=== PATIENT | female | born 1995 | race Caucasian/White ===

== ENCOUNTER 2019-12-13 10:20 | Emergency (ER) | payer BC, SELFPAY ==
[2019-12-13 10:29] VITALS: BP 119/85; PULSE 73; RESP 16; TEMP 36.8; O2SAT 100
--- NOTE | 2019-12-13 10:33 | ED.WOUNDLAC ---
HPI - Wound/Laceration General Chief Complaint: Wound/Laceration Stated Complaint: Cut to Right Thumb Time Seen by Provider: 12/13/19 10:33 Source: patient and RN notes reviewed History of Present Illness HPI narrative: Patient is a 24-year-old female who presents the urgent care with complaints of a laceration to the right thumb. Patient states that she came directly to the urgent care after the cut while washing dishes. Patient is right-hand dominant. Patient states it was on a clean piece of glass. Patient is up-to-date on her tetanus. No other acute complaints or injuries. No acute distress noted. Patient read the plan of care. Related Data Allergies Allergy/AdvReac Type Severity Reaction Status Date / Time No Known Drug Allergies Allergy Unknown Other Verified 12/13/19 10:24 Review of Systems Review of Systems: Narrative: CONSTITUTIONAL: Denies fever, chills, or sweats. EYES: Denies visual changes, redness, or discharge. ENT: Denies rhinorrhea, congestion, sore throat, or otalgia. CARDIOVASCULAR: Denies chest pain, palpitations, or edema. RESPIRATORY: Denies cough or dyspnea. GASTROINTESTINAL: Denies abdominal pain, nausea, vomiting, or diarrhea. GENITOURINARY: Denies dysuria or hematuria. SKIN: Reports of a laceration to the right thumb MUSCULOSKELETAL: Denies back pain, joint pain, or myalgia. NEUROLOGIC: Denies headache, numbness, or weakness. All other systems reviewed are negative, except as documented in HPI. PMFSH Comments At the time of my signature, I reviewed and agree with the nursing past medical, surgical, social, and family history. There is no relevant family history pertinent to the patient complaint. Exam Narrative: Exam Narrative: GENERAL: This is a well-nourished, well-developed patient, in no apparent distress. HEAD: normocephalic, atraumatic. EYES: PERRL. Sclera clear/white. Vision is grossly intact. EARS: External ears normal NOSE: External nose normal with no obvious nasal discharge THROAT: Mucous membranes moist NECK: Neck supple SKIN: 2 cm inch linear laceration to the dorsal base of the right thumb NEURO: awake, alert, and oriented to person, place and time. There were no obvious focal neurologic abnormalities. EXTREMITIES: No clubbing, cyanosis, or edema. Course Vital Signs Vital signs: Vital Signs Temperature 98.2 F 12/13/19 10:29 Pulse Rate 73 12/13/19 10:29 Respiratory Rate 16 12/13/19 10:29 Blood Pressure 119/85 12/13/19 10:29 Pulse Oximetry 100 12/13/19 10:29 Temperature 98.2 F 12/13/19 10:29 Pulse Rate 73 12/13/19 10:29 Respiratory Rate 16 12/13/19 10:29 Blood Pressure 119/85 12/13/19 10:29 Pulse Oximetry 100 12/13/19 10:29 Reviewed Procedures Laceration Laceration 1: Site: hand (Right thumb) Side (If applicable): right Description: linear Local Anesthetic: lidocaine 1% Amount of anesthesia used (mL): 0.75 Pre-repair: irrigated ====== Skin Level ====== Size (cm): other (7-0) Number of sutures: 3 ====== Subcutaneous Layer ====== ====== Muscle Layer ====== ====== Tendon Layer ====== Dressin cm linear laceration to the dorsal base of the right thumb. Wound irrigated and cleansed with [employer] normal saline. 1% lidocaine, 0.75 mils, for anesthetic. 7-0 Ethilon, 3 sutures placed, 4 Steri-Strips placed. Patient tolerated well. Positive strong right radial pulse with capillary refill less than 2 seconds pre-and post procedure. Range of motion within normal limits to right affected thumb. MDM - Wound/Laceration MDM Narrative Medical decision making narrative: Advised the patient to clean the area with plain Dial soap and water without scrubbing directly over the sutures. Do not remove the Steri-Strips. Allow them to fall off on their own. May reinforce new ones if necessary. Sutures need to be removed within 7 to 10 days. 3 sutures were placed, and
== END 2019-12-13 11:13 | disposition home or self-care (01) ==
PROVIDERS: Emergency Provider Nurse Practitioner Family; PCP Family Medicine
DX: S61.011A Laceration without foreign body of right thumb without damage to nail, initial encounter (principal); W45.8XXA Other foreign body or object entering through skin, initial encounter; Y93.G1 Activity, food preparation and clean up
CPT/HCPCS: 12001; 99213; G0463

== ENCOUNTER 2021-09-27 10:58 | Emergency (ER) | payer OTHER, BC, SELFPAY ==
[2021-09-27 11:10] VITALS: BP 139/86; PULSE 65; RESP 16; TEMP 36.2; O2SAT 100
[2021-09-27 11:12] VITALS: BP 139/86; PULSE 65; RESP 16; TEMP 36.2; O2SAT 100
--- NOTE | 2021-09-27 11:28 | ED.GENADULT ---
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 Related Data Home Medications Medication Instructions Recorded Confirmed norelgestromin-ethin.estradiol 1 patch TOPICAL WEEKLY 09/27/21 09/27/21 [Xulanjac] Allergies Allergy/AdvReac Type Severity Reaction Status Date / Time No Known Drug Allergies Allergy Unknown Other Verified 09/27/21 11:11 Review of Systems Review of Systems: CONSTITUTIONAL: Denies fever, chills, or sweats. EYES: Denies visual changes, redness, or discharge. ENT: Denies rhinorrhea, congestion, sore throat, or otalgia. CARDIOVASCULAR: Denies chest pain, palpitations, or edema. RESPIRATORY: Denies cough or dyspnea. GASTROINTESTINAL: Denies abdominal pain, nausea, vomiting, or diarrhea. GENITOURINARY: Denies dysuria or hematuria. SKIN: Denies rash or itching. Positive for needlestick on Monday to left thumb tip MUSCULOSKELETAL: Denies back pain, joint pain, or myalgia. NEUROLOGIC: Denies headache, numbness, or weakness. PSYCHIATRIC: Denies anxiety or depression. All systems reviewed & are unremarkable except as noted in HPI and below PMFSH Past Medical History Medical History (Updated 09/27/21 @ 19:31 by Katy Mauricio NP) Anemia Asthma as child History of sinus problem Surgical History Surgical History (Updated 09/27/21 @ 19:29 by Katy Mauricio NP) History of tonsillectomy Social History Social History (Updated 09/27/21 @ 19:30 by Katy Mauricio NP) Smoking status: Former smoker Tobacco type: cigarettes Alcohol intake: current Alcohol use details: social Substance use: never Living arrangements: with family Gender identity (if verbalized by the patient): Female Comments At time of signature, agree with nursing past medical, surgical, social and family history. There is no relevant family history pertinent to the presenting complaint Exam Narrative: GENERAL: Well-appearing, well-nourished, and in no acute distress. HEAD: Normocephalic, atraumatic. EYES: PERRLA and EOMI. ENT: Nares clear, no rhinorrhea or epistaxis. Mucous membranes moist. TMs normal with good light reflex throat pink with no lesions or exudates no tonsils present NECK: Supple. No lymphadenopathy CHEST: Clear to auscultation. No respiratory distress. SaO2 100% on room air HEART: Regular rate and rhythm. No murmur heard. Normal peripheral pulses. ABDOMEN: Soft, nontender, nondistended, normal active bowel sounds. EXTREMITIES: Normal range of motion. No edema. SKIN: Warm, dry, no rash. NEURO: No focal deficits. Alert and oriented x3. Course Course Level of Care: Express Care Visit Vital Signs Vital signs: Vital Signs Temperature 36.2 C L 09/27/21 11:10 Pulse Rate 65 09/27/21 11:10 Respiratory Rate 16 09/27/21 11:10 Blood Pressure 139/86 09/27/21 11:10 Pulse Oximetry 100 09/27/21 11:10 Temperature 36.2 C L 09/27/21 11:12 Pulse Rate 65 09/27/21 11:12 Respiratory Rate 16 09/27/21 11:12 Blood Pressure 139/86 09/27/21 11:12 Pulse Oximetry 100 09/27/21 11:12 Medical Decision Making Differential Diagnosis Differential Diagnosis: Influenza, prophylactics for Leptospirosis, needle stick treatment Vital Signs Vital Signs: Vital Si
== END 2021-09-27 11:44 | disposition home or self-care (01) ==
PROVIDERS: Emergency Provider Registered Nurse; PCP Family Medicine
DX: S61.032A Puncture wound without foreign body of left thumb without damage to nail, initial encounter (principal); W46.0XXA Contact with hypodermic needle, initial encounter; Y99.0 Civilian activity done for income or pay; A27.9 Leptospirosis, unspecified; Z87.891 Personal history of nicotine dependence
CPT/HCPCS: 99213; G0463

== ENCOUNTER → 2023-01-14 07:58 | Outpatient (CLI) | payer BC, SELFPAY ==
--- NOTE | ~2023-01-14 | US_ITS ---
EXAMINATION: US pelvic complete DATE: 01/14/2023 08:14 INDICATION: Amenorrhea, unspecified. TECHNIQUE: Multiple transabdominal sonographic images of the pelvis were obtained. COMPARISON: Pelvis ultrasound 08/05/2010 FINDINGS: The uterus measures 8.1 x 3.1 x 5.1 cm. There is no free fluid in the pelvis. The endometrial complex measures 3 mm in thickness. The right ovary measures 2.4 x 1.4 x 2.6 cm. The left ovary measures 3.2 x 2.0 x 3.1 cm. There is normal vascular flow in the ovaries. IMPRESSION: 1. Normal pelvis. Reviewed, dictated and finalized at location E. IMPRESSION: 1. Normal pelvis.
== END ==
PROVIDERS: PCP Nurse Practitioner; Visit Provider Nurse Practitioner
DX: N91.2 Amenorrhea, unspecified (principal)
CPT/HCPCS: 76856

== ENCOUNTER 2024-03-07 12:21 | Emergency (ER) | payer BC, SELFPAY ==
--- NOTE | 2024-03-07 12:26 | ED.URI ---
HPI - URI/Sore Throat General Chief Complaint: Upper Respiratory Infection Stated Complaint: runny Nose / sinus infection Time Seen by Provider: 03/07/24 12:25 Source: patient Mode of arrival: ambulatory Limitations: no limitations History of Present Illness HPI Narrative: Patient is a 28-year-old female who presents with congestion, runny nose, ear pressure and intermittent sinus pressure since Monday. Patient has been taking DayQuil and NyQuil with no relief. Patient has history of sinusitis. Denies any fever, chills, nausea, vomiting, diarrhea. Does not take daily allergy medicine Related Data Home Medications Medication Instructions Recorded Confirmed lactic acid 1.8 %-citric ac 1 vaginal 03/07/24 %-potassium bitartate 0.4 % vaginal gel (Phexxi) sertraline 100 mg tablet mg 03/07/24 trazodone 50 mg tablet mg 03/07/24 03/07/24 Allergies Allergy/AdvReac Type Severity Reaction Status Date / Time No Known Drug Allergies Allergy Unknown Other Verified 03/07/24 12:38 Review of Systems Review of Systems: All systems reviewed & are unremarkable except as noted in HPI and below Constitutional: Constitutional: Denies body ache(s), Denies chills, Denies fatigue, Denies fever(s), Denies headache(s), Denies malaise and Denies weakness Eyes: Eyes: Denies blurry vision, Denies itchy eyes and Denies loss of vision ENT: Reports otalgia, Denies headache(s), Reports nasal congestion, Reports nasal discharge, Denies sinus pain, Reports sinus pressure and Denies sore throat Cardiovascular: Cardiovascular: Denies chest pain, Denies irregular heart rhythm and Denies dyspnea Respiratory: Respiratory: Denies cough and Denies dyspnea Gastrointestinal: Gastrointestinal: Denies abdominal pain, Denies diarrhea, Denies nausea and Denies vomiting Musculoskeletal: Musculoskeletal: Denies back pain, Denies myalgias and Denies arthralgias Integumentary/Breasts: Skin/Breast: Denies pruritus and Denies rash Neurologic: Denies headache(s), Denies loss of vision and Denies weakness Psychiatric: Psychiatric: Reports no additional psychiatric complaints Endocrine: Endocrine: Denies fatigue Allergic/Immunologic: Allergic/Immunologic: Denies itchy eyes PMFSH Past Medical History Medical History Anemia Asthma as child History of sinus problem Surgical History Surgical History History of tonsillectomy Social History Social History Smoking status: Former smoker Tobacco type: cigarettes Alcohol intake: current Alcohol use details: social Substance use: never Living arrangements: with family Gender identity (if verbalized by the patient): Female Comments At time of signature, agree with nursing past medical, surgical, social and family history. There is no relevant family history pertinent to the presenting complaint. Exam Const: General: cooperative, healthy appearing, comfortable, no acute distress and well nourished Nutritional Appearance: well nourished Orientation/consciousness: patient oriented x3 Limitations: no limitations HENMT: Head: normal to inspection, normocephalic and atraumatic Ears: hearing grossly normal bilaterally, external ears normal, TM's normal bilaterally, EAC's normal and no periauricular adenopathy Face/Nose/Sinus: Normal external nose present, Abnormal mucous membranes and turbinates present erythematous bilateral and diffuse, normal facial exam, sinuses nontender and face symmetric Face and sinus: normal facial exam, sinuses nontender and face symmetric Mouth: Yes Normal oral and palatal mucosa present, Yes lip normal, Yes tongue normal, Yes Normal salivary glands and ducts present, Yes oropharynx normal and Yes moist mucous membranes Teeth and gingiva: dentition normal Throat: posterior oropharynx normal, uvula midli
[2024-03-07 12:31] VITALS: BP 109/82; PULSE 66; RESP 16; TEMP 36.7; O2SAT 100
[2024-03-07 12:39] VITALS: BP 109/82; PULSE 66; RESP 16; TEMP 36.7; O2SAT 100
[2024-03-07 13:07] LABS: EDCOVIDSCREEN Negative (Negative); EDINFLUASCREEN Negative (Negative); EDINFLUBSCREEN Negative (Negative)
== END 2024-03-07 13:10 | disposition home or self-care (01) ==
PROVIDERS: Emergency Provider Nurse Practitioner Family
DX: J06.9 Acute upper respiratory infection, unspecified (principal); Z87.891 Personal history of nicotine dependence; Z20.822 Contact with and (suspected) exposure to COVID-19
CPT/HCPCS: 87426; 87804; 99213; G0463